=== PATIENT | female | born 1950 | race Caucasian/White ===

== ENCOUNTER → 2017-06-02 | Outpatient (CLI) | payer OTHER ==
--- NOTE | ~2017-06-02 | BD1 ---
[facility] A Service of [facility] & [facility] RADIOLOGY TEXT RESULTS PATIENT: MADDIE DUBON LOCATION: [facility] : 54 UNIT #: [id number] AGE: [address]: STUART CERVANTES SEX: F ORDER DR: [id number] [facility] [address] [place], [place] [address] [id number] O MR#: [id number] Acc #: [id number] NAME: MADDIE DUBON : 1950 SEX: F STUDY DATE/TIME: 06/02/2017 10:14 UNIT: [facility] ROOM: STUDY DESCRIPTION: BD Dexa Bone Dens 1+ Site Attending Physician: Valeria Cervantes M.D. Referring Physician: Valeria Cervantes M.D. Ordering Physician: Valeria Cervantes M.D. Primary Care Physician: Valeria Cervantes M.D. MEDICAL IMAGING REPORT This report is preliminary unless electronic signature is present EXAM DXA scan 06/02/2017 HISTORY Status post menopause with no hormone replacement therapy. Osteopenia. Hysterectomy at age 54 with removal of both ovaries. Diabetes and hyperthyroidism. Thyroid medication for 8 years. FINDINGS Bone mineral density in the lumbar spine from L1-L4 was 1.174 g/cm2 which is 1.2 standard deviations above the mean when compared to the young adult reference population which is within the range of normal. This is 2.9 standard deviations above the mean when compared to the age-matched population. Bone mineral density in the left femoral neck was 0.794 g/cm2 which is 0.5 standard deviations below the mean when compared to the young adult reference population which is within the range of normal. This is 1 standard deviation above the mean when compared to the age-matched population. IMPRESSION Bone mineral density in the lumbar spine and left hip within the range of normal. Dictated by... Manny Bruner M.D. THIS IS AN ELECTRONICALLY VERIFIED REPORT Manny Bruner M.D. at 06/03/2017 7:14 AM NIKO/johan TD: 06/02/2017 14:09 [facility] A Service of [facility] & [facility] RADIOLOGY TEXT RESULTS PATIENT: MADDIE DUBON LOCATION: [facility] #: [id number] : 54 UNIT #: [id number] AGE: [address]: STUART CERVANTES SEX: F ORDER DR: NACHO #: [id number] MEDICAL IMAGING REPORT Page 1 of 1 COPY
== END | disposition home or self-care (01) ==
LOC: CWCC 09:30
DX: Z13.820 Encounter for screening for osteoporosis (principal)
CPT/HCPCS: 77080